=== PATIENT | female | born 1960 | race Caucasian/White ===

== ENCOUNTER 2019-04-01 00:50 | Day surgery (SDC) | payer OTHER, SELFPAY ==
[2019-03-25 11:00] VITALS: BMI 27.7
--- NOTE | 2019-04-01 08:22 | WPDANESEPPF ---
Anes - Initial Pre Proc Eval Procedure: Operation Date: 04/01/19 09:30 Proposed Procedures p Screening Colonoscopy - Blaise Dietz MD Date/Time: 04/01/19 08:22 Surgeon: Blaise Dietz MD Pre Op Diagnosis: Neoplasm Screening Patient Data Age: 59 Gender: F Height: 1.68 m Weight: 78 kg Allergies Allergy/AdvReac Type Severity Reaction Status Date / Time erythromycin base Allergy Intermediate Dizziness Verified 04/01/19 08:23 morphine AdvReac Intermediate Vomiting Verified 04/01/19 08:23 Home Medications Medication Instructions Recorded Confirmed Type alprazolam 0.5 mg PO PRN PRN 03/25/19 03/25/19 History cyanocobalamin (vitamin B-12) 1,000 mcg PO DAILY 03/25/19 03/25/19 History [Vitamin B-12] diphenhydramine HCl [Allergy] 25 mg PO HS 03/25/19 03/25/19 History omeprazole 20 mg PO DAILY 03/25/19 03/25/19 History potassium gluconate 595 mg PO DAILY 03/25/19 03/25/19 History vitamin B complex 1 cap PO DAILY 03/25/19 03/25/19 History metoprolol succinate 100 mg 100 mg PO DAILY #90 tablet 03/28/19 Rx tablet,extended release 24 hr Patient hx anesthesia problems: none Family hx anesthesia problems: none PMFSH Past Medical History Medical History (Updated 04/01/19 @ 08:23 by Alex Card MD) Back pain Carcinoid syndrome 2009, RIGHT 2 LOWER LUNG LOBES REMOVED Gastroesophageal reflux disease Family History Family History (Updated 10/27/13 @ 07:13 by DOCTOR UNKNOWN) Father Hypertension Family history of lung cancer Mother Hypertension Grandparent Cerebrovascular accident Family history of malignant neoplasm of brain Family history of coronary artery disease Social History Social History Smoking status: Former smoker Alcohol intake: current Anes - Eval Final PreProcedure Day of Procedure 04/01/19 08:22 Patient weight: overweight Heart: regular rate and rhythm Lungs: clear to auscultation and normal air movement Airway: Mallampati scale class II Neurological: alert and oriented Last oral intake: >/= 8 hours ASA classification: III Emergent: no Anesthetic plan: proceed Anesthesia type and monitoring: general GIVS Informed Consent: The patient's anesthetic plan and its attendant risks and benefits were discussed with the patient/family/POA. Questions were solicited and answers provided to the satisfaction of the patient/family/POA.
[2019-04-01] MEDS: LACTATED RINGERS 1,000 ML 150 ML IV CONT (08:26)
[2019-04-01 08:28] VITALS: BP 174/82; PULSE 75; RESP 18; TEMP 36.6; O2SAT 99
--- NOTE | 2019-04-01 08:49 | P.HP_ITS ---
History of Present Illness History of Present Illness Consent: Risks, benefits, and alternatives have been discussed and questions answered. Patient agrees to proceed with procedure. Chief complaint: Neoplasm Screening Narrative: Betty Garcia is a 59 year old female here for screening colonoscopy. [facility] Past Medical History Medical History Back pain Carcinoid syndrome 2009, RIGHT 2 LOWER LUNG LOBES REMOVED Gastroesophageal reflux disease Family History Family History Father Hypertension Family history of lung cancer Mother Hypertension Grandparent Cerebrovascular accident Family history of malignant neoplasm of brain Family history of coronary artery disease Social History Social History Smoking status: Former smoker Alcohol intake: current Meds Home Medications and Allergies Home Medications Medication Instructions Recorded Confirmed Type alprazolam 0.5 mg PO PRN PRN 03/25/19 03/25/19 History cyanocobalamin (vitamin B-12) 1,000 mcg PO DAILY 03/25/19 03/25/19 History [Vitamin B-12] diphenhydramine HCl [Allergy] 25 mg PO HS 03/25/19 03/25/19 History omeprazole 20 mg PO DAILY 03/25/19 03/25/19 History potassium gluconate 595 mg PO DAILY 03/25/19 03/25/19 History vitamin B complex 1 cap PO DAILY 03/25/19 03/25/19 History metoprolol succinate 100 mg 100 mg PO DAILY #90 tablet 03/28/19 04/01/19 Rx tablet,extended release 24 hr Allergies Allergy/AdvReac Type Severity Reaction Status Date / Time erythromycin base Allergy Intermediate Dizziness Verified 04/01/19 08:23 morphine AdvReac Intermediate Vomiting Verified 04/01/19 08:23 Vital Signs Vital Signs - 24 hr 04/01/19 08:28 Temperature 36.6 C Pulse Rate 75 Respiratory Rate 18 Blood Pressure 174/82 H Pulse Oximetry 99 Exam Resp: Auscultation: clear to auscultation bilaterally Cardio: Rate: regular rate Rhythm: regular rhythm GI: GI Palp: Yes Soft to palpation and No Tenderness to palpation present (GI) Assessment and Plan Assessment and plan (1) Colon cancer screening: Code(s): Z12.11 - Encounter for screening for malignant neoplasm of colon Status: Acute Assessment and Plan: Colonoscopy with possible biopsy or polypectomy or cautery or injection of substances.
[2019-04-01 09:21] VITALS: BP 118/78; PULSE 65; RESP 16; O2SAT 98
[2019-04-01 09:31] VITALS: BP 142/77; PULSE 72; RESP 16; O2SAT 98
== END 2019-04-01 09:53 | disposition home or self-care (01) ==
PROVIDERS: PCP Family Medicine; Visit Provider Internal Medicine Gastroenterology
PROC: 0DJD8ZZ Inspection of Lower Intestinal Tract, Via Natural or Artificial Opening Endoscopic (ICD-10-PCS; CPT 45378; principal; 2019-04-01 09:30)
DX: Z12.11 Encounter for screening for malignant neoplasm of colon (principal); K57.30 Diverticulosis of large intestine without perforation or abscess without bleeding; K21.9 Gastro-esophageal reflux disease without esophagitis; Z85.118 Personal history of other malignant neoplasm of bronchus and lung; Z90.2 Acquired absence of lung [part of]; Z87.891 Personal history of nicotine dependence
CPT/HCPCS: 45378; J2001; J2704; J7120

== ENCOUNTER 2019-11-14 08:29 | Outpatient (CLI) | payer OTHER, SELFPAY ==
--- NOTE | ~2019-11-14 | MM_ITS ---
EXAMINATION: MM screening [facility] HISTORY: Screening mammogram TECHNIQUE: Craniocaudal and mediolateral oblique 3-D tomosynthesis images were obtained and synthetic 2-D images were generated. CAD analysis was submitted and interpreted. COMPARISON: 09/28/2018, 12/03/2016, 05/22/2015 bilateral digital screening mammogram examinations BREAST PARENCHYMAL COMPOSITION: There are scattered areas of fibroglandular density. FINDINGS: Stable benign intramammary lymph node, upper outer quadrant of right breast. There is no ev idence of suspicious mass, calcification, or architectural distortion to suggest malignancy in either breast. There has been no suspicious interval change. IMPRESSION: 1. No mammographic evidence of malignancy. 2. Recommend routine screening mammography in one year. BI-RADS Category 2: Benign finding(s). Reviewed, dictated and finalized at location A.
== END 2019-11-14 08:30 | disposition home or self-care (01) ==
LOC: ANHIMG 08:33
PROVIDERS: PCP Family Medicine; Visit Provider Family Medicine
DX: Z12.31 Encounter for screening mammogram for malignant neoplasm of breast (principal)
CPT/HCPCS: 77063; 77067

== ENCOUNTER 2021-01-14 07:32 | Outpatient (CLI) | payer OTHER, SELFPAY ==
--- NOTE | ~2021-01-14 | MM_ITS ---
EXAMINATION: MM screening [facility] BI w vikas HISTORY: Screening mammogram TECHNIQUE: Craniocaudal and mediolateral oblique 3-D tomosynthesis images were obtained and synthetic 2-D images were generated. CAD analysis was submitted and interpreted. COMPARISON: 11/14/2019, 09/28/2018 BREAST PARENCHYMAL COMPOSITION: There are scattered areas of fibroglandular density. FINDINGS: There is no evidence of suspicious mass, calcification, or architectural distortion to sugg est malignancy in either breast. There has been no suspicious interval change. IMPRESSION: 1. No mammographic evidence of malignancy. 2. Recommend routine screening mammography in one year. BI-RADS Category 1: Negative Reviewed, dictated and finalized at location A. NT RELATIONSHIP CONSULTANT
== END 2021-01-14 07:33 | disposition home or self-care (01) ==
PROVIDERS: PCP Family Medicine; Visit Provider Obstetrics & Gynecology
DX: Z12.31 Encounter for screening mammogram for malignant neoplasm of breast (principal)
CPT/HCPCS: 77063; 77067

== ENCOUNTER 2021-03-12 07:08 | Outpatient (CLI) | payer OTHER, SELFPAY ==
[2021-03-12 08:29] LABS: Basophils Absolute Auto 0.1 K/mm3 (0.0-0.1); Basophils Percent Auto 0.8 % (0.2-1.2); Eosinophils Absolute Auto 0.2 K/mm3 (0-0.3); Eosinophils Percent Auto 2.4 % (0-4.4); Hematocrit 44.4 % (37.0-47.0); Hemoglobin 15.2 g/dL (12.0-15.0); Immature Granulocyte Absolute 0.01 K/mm3 (0.00-0.031); Immature Granulocyte Percent A 0.2 % (0-0.5); Lymphocytes Absolute Auto 1.76 K/mm3 (0.9-3.2); Lymphocytes Percent Auto 28.7 % (18.3-44.2); Mean Corpuscular HGB Conc 34.2 g/dl (32-36); Mean Corpuscular Hemoglobin 32.8 pg (26-34); Mean Corpuscular Volume 95.9 fl (80-100); Mean Platelet Volume 11.4 fl (7.4-10.4); Monocytes Absolute Auto 0.6 K/mm3 (0.1-0.6); Monocytes Percent Auto 9.3 % (2.6-8.5); Neutrophils Absolute Auto 3.6 K/mm3 (1.3-6.7); Neutrophils Percent Auto 58.6 % (45.5-73.1); Platelet Count Result 232 k/mm3 (150-375); Red Blood Count 4.63 M/mm3 (4.2-5.4); Red Cell Distribution Width 12.1 % (11.5-14.5); White Blood Count 6.1 K/mm3 (4.5-10.0)
[2021-03-12 08:37] LABS: Anion Gap 9 mmol/L (8-16); Blood Urea Nitrogen 9 mg/dL (7-17); Calcium 9.1 mg/dL (8.4-10.2); Carbon Dioxide 27 mmol/L (22-30); Chloride 101 mmol/L (98-107); Cholesterol 247 mg/dL (0-200); Estimated Glomerular Filt Rate > 60; Glucose 99 mg/dL (65-110); HDL Direct 71 mg/dL; Potassium 3.9 mmol/L (3.4-5.0); Sodium 137 mmol/L (137-145); Triglycerides 130 mg/dL (<150)
[2021-03-12 08:48] LABS: LDL Cholesterol Direct 144 mg/dL
[2021-03-12 10:32] LABS: Vitamin D 25 Hydroxy 28.6 ng/mL
== END 2021-03-12 07:09 | disposition home or self-care (01) ==
LOC: ANHLAB 07:10
PROVIDERS: PCP Family Medicine; Visit Provider Physician Assistant Medical
DX: E55.9 Vitamin D deficiency, unspecified (principal); I10 Essential (primary) hypertension; Z13.220 Encounter for screening for lipoid disorders
CPT/HCPCS: 36415; 80048; 80061; 82306; 85025

== ENCOUNTER 2021-11-20 08:47 | Outpatient (CLI) | payer OTHER, SELFPAY ==
--- NOTE | ~2021-11-20 | XR_ITS ---
EXAM: XR knee RT 3V, XR knee LT 3V DATE: 11/20/2021 09:11 HISTORY: M25.561 - Pain in right knee . COMPARISON: None available. FINDINGS: Decreased mineralization. No fracture or dislocation. No lytic or blastic lesion. Mild tyson ateral medial joint space narrowing. Mild tricompartmental bilateral osteophytosis. No erosion or per iosteal change. Soft tissues within normal limits. IMPRESSION: Mild bilateral tricompartmental knee osteoarthritis. Reviewed, dictated and finalized at location K. IMPRESSION: Mild bilateral tricompartmental knee osteoarthritis.
== END 2021-11-20 08:48 | disposition home or self-care (01) ==
PROVIDERS: PCP Family Medicine; Visit Provider Physician Assistant Medical
DX: M17.0 Bilateral primary osteoarthritis of knee (principal)
CPT/HCPCS: 73562

== ENCOUNTER 2022-03-14 08:22 | Outpatient (CLI) | payer OTHER, SELFPAY ==
--- NOTE | ~2022-03-14 | MM_ITS ---
EXAMINATION: MM screening [facility] BI w vikas HISTORY: Screening TECHNIQUE: Craniocaudal and mediolateral oblique 3-D tomosynthesis images were obtained and synthetic 2-D images were generated. CAD analysis was submitted and interpreted. COMPARISON: Comparison to multiple prior studies sequentially, with oldest reviewed study dated 12/31. BREAST PARENCHYMAL COMPOSITION: There are scattered areas of fibroglandular density. FINDINGS: There is no evidence of suspicious mass, calcification, or architectural distortion to sugg est malignancy in either breast. There has been no suspicious interval change. IMPRESSION: 1. No mammographic evidence of malignancy. 2. Recommend routine screening mammography in one year. BI-RADS Category 1: Negative Reviewed, dictated and finalized at location A. APPLICATIONS MANAGER
== END 2022-03-14 08:23 | disposition home or self-care (01) ==
LOC: ANHIMG 08:25
PROVIDERS: PCP Family Medicine; Visit Provider Obstetrics & Gynecology
DX: Z12.31 Encounter for screening mammogram for malignant neoplasm of breast (principal)
CPT/HCPCS: 77063; 77067

== ENCOUNTER 2022-09-11 09:29 | Outpatient (CLI) | payer OTHER, SELFPAY ==
--- NOTE | ~2022-09-11 | US_ITS ---
Abdominal Sonogram: Real-time sonographic imaging of the abdomen was performed. Clinical History: Abdominal pain Findings: The liver appears normal with no evidence of mass lesion or bile duct dilatation. Main por [place] vein demonstrates normal direction of flow. The spleen is normal in size without evidence of foca l lesion. The gallbladder is well distended, and appears normal with no evidence of gallstone or wal l thickening. The common bile duct measures 7 mm. The visualized pancreas, aorta, and IVC are unrema rkable. The right kidney measures 11.7 cm in length and the left kidney measures 12.5 cm. There is no hydronephrosis or renal calculus. Impression: Unremarkable abdominal ultrasound. Reviewed, dictated and finalized at location M. Impression: Unremarkable abdominal ultrasound.
== END 2022-09-11 09:30 | disposition home or self-care (01) ==
LOC: ANHIMG 09:31
PROVIDERS: PCP Family Medicine; Visit Provider Physician Assistant Medical
DX: R10.84 Generalized abdominal pain (principal); R19.7 Diarrhea, unspecified
CPT/HCPCS: 76700

== ENCOUNTER 2022-10-17 11:45 | Outpatient (CLI) | payer OTHER, SELFPAY ==
[2022-10-17 12:27] LABS: Basophils Percent Auto 0.3 % (0.2-1.2); Eosinophils Absolute Auto 0.1 K/mm3 (0-0.3); Eosinophils Percent Auto 1.6 % (0-4.4); Hematocrit 43.1 % (37.0-47.0); Hemoglobin 14.6 g/dL (12.0-15.0); Immature Granulocyte Absolute 0.01 K/mm3 (0.00-0.031); Immature Granulocyte Percent A 0.2 % (0-0.5); Lymphocytes Absolute Auto 1.86 K/mm3 (0.9-3.2); Lymphocytes Percent Auto 29.2 % (18.3-44.2); Mean Corpuscular HGB Conc 33.9 g/dl (32-36); Mean Corpuscular Hemoglobin 32.3 pg (26-34); Mean Corpuscular Volume 95.4 fl (80-100); Mean Platelet Volume 10.2 fl (7.4-10.4); Monocytes Absolute Auto 0.6 K/mm3 (0.1-0.6); Monocytes Percent Auto 8.6 % (2.6-8.5); Neutrophils Absolute Auto 3.8 K/mm3 (1.3-6.7); Neutrophils Percent Auto 60.1 % (45.5-73.1); Platelet Count Result 252 k/mm3 (150-375); Red Blood Count 4.52 M/mm3 (4.2-5.4); Red Cell Distribution Width 12.2 % (11.5-14.5); White Blood Count 6.4 K/mm3 (4.5-10.0)
[2022-10-17 13:34] LABS: Vitamin B12 > 1000.0 pg/mL (239-931)
== END 2022-10-17 11:46 | disposition home or self-care (01) ==
LOC: ANHLAB 11:47
PROVIDERS: PCP Family Medicine; Visit Provider Physician Assistant Medical
DX: R71.8 Other abnormality of red blood cells (principal)
CPT/HCPCS: 36415; 82607; 85025

== ENCOUNTER 2023-06-03 07:26 | Outpatient (CLI) | payer OTHER, SELFPAY ==
--- NOTE | ~2023-06-03 | MM_ITS ---
EXAMINATION: MM screening [facility] BI w vikas HISTORY: Screening TECHNIQUE: Craniocaudal and mediolateral oblique 3-D tomosynthesis images were obtained and synthetic 2-D images were generated. CAD analysis was submitted and interpreted. COMPARISON: Comparison to multiple prior studies sequentially, with oldest reviewed study dated 12/31. BREAST PARENCHYMAL COMPOSITION: There are scattered areas of fibroglandular density. FINDINGS: There is no evidence of suspicious mass, calcification, or architectural distortion to sugg est malignancy in either breast. There has been no suspicious interval change. IMPRESSION: 1. No mammographic evidence of malignancy. 2. Recommend routine screening mammography in one year. BI-RADS Category 1: Negative Reviewed, dictated and finalized at location A.
== END 2023-06-03 07:27 | disposition home or self-care (01) ==
LOC: ANHIMG 07:29
PROVIDERS: PCP Family Medicine; Visit Provider Nurse Practitioner
DX: Z12.31 Encounter for screening mammogram for malignant neoplasm of breast (principal)
CPT/HCPCS: 77063; 77067

== ENCOUNTER 2023-06-03 08:05 | Outpatient (CLI) | payer OTHER, SELFPAY ==
[2023-06-03 08:45] LABS: Basophils Percent Auto 0.5 % (0.2-1.2); Eosinophils Absolute Auto 0.1 K/mm3 (0-0.3); Eosinophils Percent Auto 1.2 % (0-4.4); Hemoglobin 15.2 g/dL (12.0-15.0); Immature Granulocyte Absolute 0.02 K/mm3 (0.00-0.031); Immature Granulocyte Percent A 0.3 % (0-0.5); Lymphocytes Absolute Auto 1.51 K/mm3 (0.9-3.2); Lymphocytes Percent Auto 23.1 % (18.3-44.2); Mean Corpuscular HGB Conc 33.8 g/dl (32-36); Mean Corpuscular Hemoglobin 32.5 pg (26-34); Mean Corpuscular Volume 96.4 fl (80-100); Mean Platelet Volume 10.8 fl (7.4-10.4); Monocytes Absolute Auto 0.6 K/mm3 (0.1-0.6); Monocytes Percent Auto 9.5 % (2.6-8.5); Neutrophils Absolute Auto 4.3 K/mm3 (1.3-6.7); Neutrophils Percent Auto 65.4 % (45.5-73.1); Platelet Count Result 254 k/mm3 (150-375); Red Blood Count 4.67 M/mm3 (4.2-5.4); Red Cell Distribution Width 12.3 % (11.5-14.5); White Blood Count 6.5 K/mm3 (4.5-10.0)
[2023-06-03 09:06] LABS: Alanine Aminotransferase 17 U/L (6-35); Alkaline Phosphatase 84 U/L (38-126); Anion Gap 1 mmol/L (4-12); Aspartate Amino Transferase 26 U/L (14-36); Bilirubin,Total 0.6 mg/dL (0.2-1.3); Blood Urea Nitrogen 14 mg/dL (7-17); Carbon Dioxide 29 mmol/L (22-30); Chloride 105 mmol/L (98-107); Cholesterol 215 mg/dL (0-200); Estimated Glomerular Filt Rate > 60; Glucose 114 mg/dL (65-110); HDL Direct 64 mg/dL; Potassium 4.1 mmol/L (3.4-5.0); Sodium 135 mmol/L (137-145); Triglycerides 109 mg/dL (<150)
[2023-06-03 09:14] LABS: LDL Cholesterol Direct 127 mg/dL
== END 2023-06-03 08:06 | disposition home or self-care (01) ==
PROVIDERS: PCP Family Medicine; Visit Provider Physician Assistant Medical
DX: E78.2 Mixed hyperlipidemia (principal); I10 Essential (primary) hypertension; R71.8 Other abnormality of red blood cells; R19.7 Diarrhea, unspecified
CPT/HCPCS: 36415; 80053; 80061; 83036; 85025

== ENCOUNTER 2023-10-16 08:16 | Outpatient (CLI) | payer OTHER, SELFPAY ==
--- NOTE | ~2023-10-16 | DEXA_ITS ---
Bone Density Report Name: PATT SHEPPARD Age: 63 Sex: Female Ethnicity: White Date of : 1960 Indication: postmenopausal; screening for osteoporosis; history of glucocorticoids; cancer; Referring Provider: ERIK, NAVI Study: Bone densitometry was performed. Exam Date: October 16, 2023 Accession number: [id number] Bone Density: Region BMD T-score Z-score Classification AP Spine(L1-L4) 1.003 -0.4 1.3 Normal Femoral Neck (Left) 0.700 -1.3 0.1 Osteopenia Total Hip (Left) 1.049 0.9 2.1 Normal Femoral Neck (Right) 0.715 -1.2 0.3 Osteopenia Total Hip (Right) 0.999 0.5 1.7 Normal Total Hip Mean 1.024 0.7 1.9 Normal World Health Organization criteria for BMD impression classify patients as: Normal (T-score at or above -1.0), Osteopenia (T-score between -1.0 and -2.5), or Osteoporosis (T-score at or below -2.5). Clinical Information Provided by Patient: Smokes Has taken Glucocorticoids Has used the following medications: Vitamin D Has the following medical conditions: Cancer Patient maximum height was 67 Menopause Age: 47 No regular weight bearing exercise Drinks caffeinated beverages Onset of menses at age 12 Number of children 1 Impression: The patient has low bone mass, based on the Left Femoral Neck T-score. The patient has risk factors, including: smoking, history of glucocorticoid therapy. Discussion: BONE DENSITY IS LOW AT ONE OR MORE SKELETAL SITES. This patient's lowest T-score is low at one or more skeletal sites. It meets the World Health Organization's (WHO) criteria for ?low bone mass? (T-score between -1.0 and -2.5). The patient's 10-year risk of fracture as calculated by FRAX is less than the threshold where pharmacological therapy is recommended by the National Osteoporosis Foundation (NOF). However, all treatment decisions require clinical judgment and consideration of individual patient factors, including patient preferences, comorbidities, previous drug use, risk factors not captured in the FRAX model (e.g., frailty, falls, vitamin D deficiency, increased bone turnover, interval significant decline in bone density) and possible under or overestimation of fracture risk by FRAX. The patient should follow a healthful lifestyle (good nutrition with adequate calcium and vitamin D, and appropriate weight-bearing exercise). Follow-Up: Consider repeating this study in 2 to 3 years to reassess this patient's status, or sooner if there is some new clinical indication. Reported by: ADRIAN on 10/16/2023 8:53:00 AM. Reviewed, dictated and finalized at location AJanet OBREGON
== END 2023-10-16 08:17 | disposition home or self-care (01) ==
LOC: ANHIMG 08:20
PROVIDERS: PCP Family Medicine; Visit Provider Nurse Practitioner
DX: Z78.0 Asymptomatic menopausal state (principal); M85.852 Other specified disorders of bone density and structure, left thigh; M85.851 Other specified disorders of bone density and structure, right thigh
CPT/HCPCS: 77080